=== PATIENT | male | born 2000 | race Caucasian/White ===

== ENCOUNTER 2019-01-04 08:24 | Emergency (ER) | payer OTHER, MEDICAID ==
[2019-01-04] MEDS: HYDROCODONE/APAP (5/325) TAB PO (09:40)
[2019-01-04] MEDS: ONDANSETRON (ODT) 4 MG TAB ODT (09:40)
== END 2019-01-04 10:05 | disposition home or self-care (01) ==
LOC: FTE 08:24
DX: S82.831A Other fracture of upper and lower end of right fibula, initial encounter for closed fracture (principal); J45.909 Unspecified asthma, uncomplicated; X50.1XXA Overexertion from prolonged static or awkward postures, initial encounter; Y92.310 Basketball court as the place of occurrence of the external cause
CPT/HCPCS: 29515; 73610-RT; 73630; 99283-25